=== PATIENT | female | born 1975 | race African-American/Black ===

== ENCOUNTER 2021-01-14 04:36 | Emergency (ER) | payer OTHER ==
[~2021-01-14] VITALS: Ht 175.3 cm; Wt 64.0 kg
[2021-01-14] MEDS ORDERED: MORPHINE SULFATE 4 MG/ML CPJ (NOT FOR IM USE) IV STA (05:53)
[2021-01-14] MEDS ORDERED: ONDANSETRON HCL 4MG/2ML INJ IV STA (05:53)
[2021-01-14 06:06] LABS: CHLORIDE 106 mEq/L (98-107)
[2021-01-14 06:07] LABS: BASOPHILS % 0.8 % (0.0-2.0); EOSINOPHILS % 0.3 % (0.0-5.0); HEMATOCRIT. 39.9 % (36.0-48.0); HEMOGLOBIN. 12.9 g/dL (12.0-16.0); LYMPHOCYTES % 16.1 % (20.0-50.0); MEAN CORPUSCULAR VOLUME 95.5 fL (81.0-99.0); MEAN PLATELET VOLUME 8.7 fl (7.4-10.4); NEUTROPHILS % 78.8 % (40.0-76.0); PLATELET 243 x1000/uL (130-400); RED BLOOD CELL COUNT 4.18 mill/uL (4.2-5.4); RED CELL DISTRIBUTION WIDTH 13.8 % (11.6-14.6)
[2021-01-14 06:12] LABS: INR 0.9; PROTHROMBIN TIME 10.2 sec (9.6-11.0)
[2021-01-14 06:13] LABS: ETHANOL BLOOD < 10 mg/dL
[2021-01-14] MEDS ORDERED: HALOPERIDOL LACTATE 5MG/ML VIAL IM ONE (06:15)
[2021-01-14] MEDS ORDERED: SODIUM CHLORIDE 0.9% 1,000 ML IV ONE (08:45)
[2021-01-14] MEDS ORDERED: MORPHINE SULFATE 4 MG/ML CPJ (NOT FOR IM USE) IV ONE (08:45)
[2021-01-14 09:22] LABS: CLARITY URINE TURBID (CLEAR); COLOR URINE YELLOW (YELLOW); KETONES URINE TRACE (NEGATIVE); LEUKOCYTE ESTERASE URINE NEGATIVE (NEGATIVE); NITRITE URINE NEGATIVE (NEGATIVE); OCCULT BLOOD URINE TRACE (NEGATIVE); PH URINE >=9.0 (4.5-8.0); PROTEIN URINE NEGATIVE (NEGATIVE)
[2021-01-14] MEDS ORDERED: IOHEXOL-300 100 ML BOTTLE ONE (09:40)
[2021-01-14 11:00] VITALS: BP 127/87
== END 2021-01-14 11:26 | disposition home or self-care (01) ==
LOC: ER 04:36
DX: E73.9 Lactose intolerance, unspecified (principal)
CPT/HCPCS: 36415; 74177; 80053; 80320; 81003; 81025; 83690; 85025; 85610; 93005; 96374; 96375; 96376; 99285; J2270; J2405; J7030; Q9967; G0480

== ENCOUNTER 2023-12-02 07:07 | Emergency (ER) | payer OTHER ==
[~2023-12-02] VITALS: Ht 167.6 cm; Wt 73.0 kg
[2023-12-02 07:19] VITALS: BP 154/83; PULSE 92; RESP 18; TEMP 98.4; O2SAT 98
[2023-12-02] MEDS: HALOPERIDOL LACTATE 5MG/ML VIAL IM ONE (08:00)
[2023-12-02] MEDS: METOCLOPRAMIDE HCL 10MG TABLET PO ONE (08:15)
[2023-12-02 08:37] LABS: EOSINOPHILS % 0.8 % (0.0-5.0); HEMOGLOBIN. 12.5 g/dL (12.0-16.0); LYMPHOCYTES % 19.8 % (20.0-50.0); MEAN CORPUSCULAR HEMOGLOBIN 30.5 pg (28.0-32.0); MEAN CORPUSCULAR VOLUME 95.3 fL (81.0-99.0); MEAN PLATELET VOLUME 7.7 fl (7.4-10.4); MONOCYTES % 4.4 % (2.0-8.0); PLATELET 281 x1000/uL (130-400); RED BLOOD CELL COUNT 4.09 mill/uL (4.2-5.4); RED CELL DISTRIBUTION WIDTH 14.1 % (11.6-14.6); WHITE BLOOD COUNT 12.2 x1000/uL (4.5-11.0)
[2023-12-02 08:48] LABS: CLARITY URINE CLEAR (CLEAR); COLOR URINE YELLOW (YELLOW); GLUCOSE URINE NEGATIVE (NEGATIVE); KETONES URINE NEGATIVE (NEGATIVE); LEUKOCYTE ESTERASE URINE 1+ (NEGATIVE); NITRITE URINE NEGATIVE (NEGATIVE); OCCULT BLOOD URINE TRACE (NEGATIVE); PH URINE 8.5 (4.5-8.0); PROTEIN URINE NEGATIVE (NEGATIVE); SPECIFIC GRAVITY URINE 1.017 (1.005-1.030); UROBILINOGEN URINE 0.2 E.U./dL (0.2-1.0)
[2023-12-02 08:57] LABS: ALANINE AMINOTRANSFERASE 9 IU/L (10-49); ALBUMIN 4.6 g/dL (3.2-4.8); ASPARTATE AMINOTRANSFERASE 22 IU/L (<34); BILIRUBIN TOTAL 0.5 mg/dL (0.1-1.0); CALCIUM 9.5 mg/dL (8.7-10.4); CARBON DIOXIDE 24 mEq/L (21-32); CHLORIDE 108 mEq/L (98-107); CREATININE 0.9 mg/dL (0.6-1.0); GLUCOSE 144 mg/dL (70-105); POTASSIUM 3.6 mEq/L (3.5-5.1); PROTEIN TOTAL 7.9 g/dL (6.0-8.3); SODIUM 140 mEq/L (136-145); UREA NITROGEN BLOOD 15 mg/dL (9-23)
[2023-12-02 09:01] LABS: INR 0.9; PROTHROMBIN TIME 10.4 sec (9.6-11.0)
[2023-12-02 09:07] LABS: HCG SCREEN NEGATIVE
[2023-12-02 09:29] LABS: SQUAMOUS EPITHELIAL CELL URINE 3+ /lpf (RARE/1+)
[2023-12-02 09:31] LABS: BACTERIA URINE 1+; TRICHOMONAS URINE 2+
[2023-12-02 09:32] LABS: RBC URINE 0-2 /hpf (0-2)
== END 2023-12-02 09:28 | disposition left against medical advice (07) ==
LOC: ER 07:40
DX: R10.9 Unspecified abdominal pain (principal); Z32.01 Encounter for pregnancy test, result positive
CPT/HCPCS: 99283; 80053; 81003; 81025; 84703; 84702; 83690; 85025; 85610; 36415; J8597; J1630

== ENCOUNTER 2024-05-27 20:46 | Emergency (ER) | payer MEDICAID, OTHER ==
[~2024-05-27] VITALS: Ht 162.6 cm; Wt 65.0 kg
[2024-05-27 20:49] VITALS: TEMP 98.2; O2SAT 100
[2024-05-27 21:57] LABS: CLARITY URINE CLOUDY (CLEAR); COLOR URINE YELLOW (YELLOW); GLUCOSE URINE TRACE (NEGATIVE); KETONES URINE 3+ (NEGATIVE); LEUKOCYTE ESTERASE URINE TRACE (NEGATIVE); NITRITE URINE NEGATIVE (NEGATIVE); OCCULT BLOOD URINE 1+ (NEGATIVE); PH URINE >=9.0 (4.5-8.0); PROTEIN URINE TRACE (NEGATIVE); SPECIFIC GRAVITY URINE 1.024 (1.005-1.030); UROBILINOGEN URINE 0.2 E.U./dL (0.2-1.0)
[2024-05-27 22:00] LABS: BASOPHILS % 0.3 % (0.0-2.0); DIFFERENTIAL COMMENT 0; EOSINOPHILS % 0.1 % (0.0-5.0); HEMATOCRIT. 39.6 % (36.0-48.0); HEMOGLOBIN. 13.1 g/dL (12.0-16.0); LYMPHOCYTES % 7.6 % (20.0-50.0); MEAN CORPUSCULAR HEMOGLOBIN 31.7 pg (28.0-32.0); MEAN CORPUSCULAR HGB CONC 33.1 g/dL (31.0-37.0); MEAN CORPUSCULAR VOLUME 95.5 fL (81.0-99.0); MEAN PLATELET VOLUME 8.9 fl (7.4-10.4); MONOCYTES % 4.1 % (2.0-8.0); NEUTROPHILS % 87.9 % (40.0-76.0); PLATELET 248 x1000/uL (130-400); RED BLOOD CELL COUNT 4.14 mill/uL (4.2-5.4); RED CELL DISTRIBUTION WIDTH 14.3 % (11.6-14.6)
[2024-05-27 22:02] LABS: *AMPHETAMINES SCREEN URINE NEGATIVE (NEGATIVE); *BARBITURATES SCREEN URINE NEGATIVE (NEGATIVE); *BENZODIAZEPINES SCREEN URINE NEGATIVE (NEGATIVE); *COCAINE SCREEN URINE NEGATIVE (NEGATIVE)
[2024-05-27 22:03] LABS: CANNABINOID URINE SCREEN PRESUMPTIVE POSITIVE (NEGATIVE); ECSTASY MDMA SCREEN URINE NEGATIVE (NEGATIVE); METHADONE URINE SCREEN NEGATIVE (NEGATIVE); OPIATES URINE SCREEN NEGATIVE (NEGATIVE); PHENCYCLIDINE URINE SCREEN NEGATIVE (NEGATIVE)
[2024-05-27 22:21] LABS: CHLORIDE 107 mEq/L (98-107); POTASSIUM 3.6 mEq/L (3.5-5.1); SODIUM 141 mEq/L (136-145)
[2024-05-27 22:22] LABS: CALCIUM 10.2 mg/dL (8.7-10.4); CARBON DIOXIDE 24 mEq/L (21-32)
[2024-05-27 22:23] LABS: PROTHROMBIN TIME 10.9 sec (9.6-11.0)
[2024-05-27 22:23] LABS: BACTERIA URINE 3+; SQUAMOUS EPITHELIAL CELL URINE 3+ /lpf (RARE/1+); WBC URINE 0-2 /hpf (0-2)
[2024-05-27 22:24] LABS: TRICHOMONAS URINE FEW
[2024-05-27 22:27] LABS: CREATININE 0.9 mg/dL (0.6-1.0); GLUCOSE 164 mg/dL (70-105)
[2024-05-27 22:28] LABS: UREA NITROGEN BLOOD 10 mg/dL (9-23)
[2024-05-27 22:29] LABS: ALANINE AMINOTRANSFERASE 14 IU/L (10-49); ALBUMIN 4.8 g/dL (3.2-4.8); ASPARTATE AMINOTRANSFERASE 24 IU/L (<34); BILIRUBIN DIRECT 0.4 mg/dL (<=3.0)
[2024-05-27 22:30] LABS: BILIRUBIN TOTAL 1.3 mg/dL (0.1-1.0); PROTEIN TOTAL 7.7 g/dL (6.0-8.3)
[2024-05-27 22:31] LABS: ETHANOL BLOOD < 10 mg/dL (<10); TROPONIN I HIGH SENSITIVITY < 4 ng/L (3.0-34)
[2024-05-27] MEDS: ONDANSETRON HCL 4MG/2ML INJ IV STA (23:13)
[2024-05-27] MEDS: KETOROLAC 30MG/ML VIAL IV STA (23:13)
[2024-05-27] MEDS: CEFTRIAXONE 1GM/50ML 50 ML IV ONE (23:13)
[2024-05-27] MEDS: SODIUM CHLORIDE 0.9% 1,000 ML IV ONE (23:13)
[2024-05-27] MEDS: ONDANSETRON 4MG ODT PO ONE (23:14)
[2024-05-27] MEDS: METRONIDAZOLE 500MG TABLET PO ONE (23:14)
[2024-05-28] MEDS ORDERED: IBUP-2028 MT (01:05)
[2024-05-28] MEDS ORDERED: DOXY100C5 MT (01:05)
[2024-05-28 01:15] VITALS: BP 147/78; PULSE 44; RESP 10; O2SAT 95
[2024-05-28] MEDS ORDERED: KETOROLAC 15MG/ML VIAL IV ONE (01:30)
== END 2024-05-28 01:44 | disposition home or self-care (01) ==
LOC: ER 20:46
DX: R10.9 Unspecified abdominal pain (principal); R11.2 Nausea with vomiting, unspecified; R19.7 Diarrhea, unspecified; A59.9 Trichomoniasis, unspecified; F17.200 Nicotine dependence, unspecified, uncomplicated; F12.90 Cannabis use, unspecified, uncomplicated
CPT/HCPCS: 80076; 80305; 80048; 81003; 80320; 83690; 85025; 85610; 84484; 36415; 96365; 96375; 99285; 74176; Q0162; J0696; J1885; J2405; J7030; Z7610; G0480